=== PATIENT | female | born 1995 | race African-American/Black ===

== ENCOUNTER 2020-05-18 21:48 | Emergency (ER) | payer MEDICAID ==
[~2020-05-18] VITALS: Ht 167.6 cm; Wt 64.0 kg
[2020-05-18] MEDS ORDERED: ACETAMINOPHEN 325MG TABLET PO ONE (22:45)
[2020-05-18 23:47] VITALS: BP 119/82
== END 2020-05-18 23:52 | disposition home or self-care (01) ==
LOC: ER 21:55
DX: Z03.818 Encounter for observation for suspected exposure to other biological agents ruled out (principal); R50.9 Fever, unspecified
CPT/HCPCS: 87635; 99283; C9803; 99282

== ENCOUNTER 2022-06-05 21:36 | Emergency (ER) | payer MEDICAID, OTHER ==
[~2022-06-05] VITALS: Ht 167.6 cm; Wt 80.0 kg
[2022-06-05] MEDS ORDERED: KETOROLAC 60MG/2ML VIAL IM ONE (23:15)
[2022-06-06] MEDS ORDERED: IMIT25 PO (01:39)
[2022-06-06 02:00] VITALS: BP 133/78
== END 2022-06-06 02:00 | disposition home or self-care (01) ==
LOC: ER 21:36
DX: R51.9 Headache, unspecified (principal)
CPT/HCPCS: 70450; 81025; 96372; 99284; J1885

== ENCOUNTER 2022-08-19 20:01 | Emergency (ER) | payer MEDICAID, OTHER ==
[~2022-08-19] VITALS: Ht 167.6 cm; Wt 75.0 kg
[~2022-08-19 20:01] MED LIST: IMIT25 PO
[2022-08-19] MEDS ORDERED: DEXAMETHASONE 4MG TABLET PO ONE (21:30)
[2022-08-19 21:54] VITALS: BP 122/78
== END 2022-08-19 21:50 | disposition home or self-care (01) ==
LOC: ER 20:24
DX: J03.90 Acute tonsillitis, unspecified (principal)
CPT/HCPCS: 99283; J8540

== ENCOUNTER 2023-01-15 00:57 | Emergency (ER) | payer MEDICAID, OTHER ==
[~2023-01-15] VITALS: Ht 167.6 cm; Wt 75.3 kg
[2023-01-15 01:13] VITALS: BP 123/80
== END 2023-01-15 04:00 | disposition left against medical advice (07) ==
LOC: ER 00:57
DX: Z53.21 Procedure and treatment not carried out due to patient leaving prior to being seen by health care provider (principal)
CPT/HCPCS: 99281

== ENCOUNTER 2023-02-10 18:42 | Emergency (ER) | payer MEDICAID, OTHER ==
[~2023-02-10] VITALS: Ht 167.6 cm; Wt 75.0 kg
[2023-02-10] MEDS ORDERED: KETOROLAC 30MG/ML VIAL IM ONE (20:15)
[2023-02-10 20:48] VITALS: BP 132/89
[2023-02-10] MEDS ORDERED: ASPI1TAB8 PO (23:03)
== END 2023-02-10 23:16 | disposition home or self-care (01) ==
LOC: ER 18:42
DX: G43.909 Migraine, unspecified, not intractable, without status migrainosus (principal); H53.8 Other visual disturbances
CPT/HCPCS: 81025; 96372; 99283; J1885; Z7610

== ENCOUNTER 2023-04-28 22:17 | Emergency (ER) | payer MEDICAID ==
[~2023-04-28] VITALS: Ht 167.6 cm; Wt 77.1 kg
[~2023-04-28 22:17] MED LIST changes: +ASPI1TAB8 PO
[2023-04-28 22:42] VITALS: BP 121/79; O2SAT 100
[2023-04-29] MEDS ORDERED: NAPR-1164 MT (01:56)
[2023-04-29 02:19] VITALS: PULSE 71; RESP 16; TEMP 98.4
== END 2023-04-29 02:21 | disposition home or self-care (01) ==
LOC: ER 22:20
DX: M79.661 Pain in right lower leg (principal)
CPT/HCPCS: 73562; 99283; Z7610

== ENCOUNTER 2023-06-04 14:32 | Emergency (ER) | payer MEDICAID ==
[~2023-06-04] VITALS: Ht 172.7 cm; Wt 77.0 kg
[~2023-06-04 14:32] MED LIST changes: +NAPR-1164 MT
[2023-06-04 14:33] VITALS: PULSE 87
[2023-06-04 14:34] VITALS: BP 123/83; RESP 20; TEMP 98.3; O2SAT 97
[2023-06-04] MEDS ORDERED: ONDANSETRON 4MG ODT PO ONE (14:45)
[2023-06-04 15:06] LABS: BASOPHILS % 0.7 % (0.0-2.0); EOSINOPHILS % 3.2 % (0.0-5.0); HEMATOCRIT. 42.9 % (36.0-48.0); HEMOGLOBIN. 14.5 g/dL (12.0-16.0); LYMPHOCYTES % 28.8 % (20.0-50.0); MEAN CORPUSCULAR HEMOGLOBIN 31.4 pg (28.0-32.0); MEAN CORPUSCULAR HGB CONC 33.9 g/dL (31.0-37.0); MEAN CORPUSCULAR VOLUME 92.6 fL (81.0-99.0); MEAN PLATELET VOLUME 9.3 fl (7.4-10.4); MONOCYTES % 5.8 % (2.0-8.0); NEUTROPHILS % 61.5 % (40.0-76.0); PLATELET 355 x1000/uL (130-400); RED BLOOD CELL COUNT 4.63 mill/uL (4.2-5.4); RED CELL DISTRIBUTION WIDTH 14.8 % (11.6-14.6); WHITE BLOOD COUNT 8.8 x1000/uL (4.5-11.0)
[2023-06-04 15:16] LABS: CHLORIDE 109 mEq/L (98-107); INDEX HEMOLYSI 1 (1-3); INDEX ICTERIC 1 (1-4); INDEX LIPEMIC 1 (1-3); POTASSIUM 3.9 mEq/L (3.5-5.1); SODIUM 132 mEq/L (136-145)
[2023-06-04 15:23] LABS: ALANINE AMINOTRANSFERASE 12 IU/L (13-61); ALBUMIN 4.1 g/dL (3.4-5.0); ASPARTATE AMINOTRANSFERASE 10 IU/L (15-37); BILIRUBIN TOTAL 0.6 mg/dL (0.1-1.0); CALCIUM 8.9 mg/dL (8.5-10.1); CARBON DIOXIDE 27 mEq/L (21-32); CREATININE 0.9 mg/dL (0.6-1.3); GLUCOSE 97 mg/dL (70-105); PROTEIN TOTAL 9.1 g/dL (6.0-8.3); UREA NITROGEN BLOOD 8 mg/dL (7-21)
[2023-06-04] MEDS ORDERED: ONDA4TAB50 MT (16:13)
[2023-06-04] MEDS ORDERED: BISM262T15 MT (16:13)
[2023-06-04] MEDS ORDERED: METOCLOPRAMIDE HCL 5MG TABLET PO ONE (16:45)
== END 2023-06-04 16:45 | disposition home or self-care (01) ==
LOC: ER 14:32
DX: R11.2 Nausea with vomiting, unspecified (principal)
CPT/HCPCS: 99283; 80053; 81025; 83690; 85025; 36415; Q0162; J8597

== ENCOUNTER 2023-06-25 16:01 | Emergency (ER) | payer MEDICAID, OTHER ==
[~2023-06-25] VITALS: Ht 167.6 cm; Wt 75.0 kg
[~2023-06-25 16:01] MED LIST changes: +BISM262T15 MT; +ONDA4TAB50 MT
[2023-06-25 16:25] VITALS: BP 126/76; PULSE 79; RESP 18; TEMP 98.5; O2SAT 99
== END 2023-06-25 17:53 | disposition home or self-care (01) ==
LOC: ER 16:01
DX: S00.33XA Contusion of nose, initial encounter (principal); W22.8XXA Striking against or struck by other objects, initial encounter; Y93.89 Activity, other specified; Y92.89 Other specified places as the place of occurrence of the external cause; Y99.8 Other external cause status
CPT/HCPCS: 81025; 99282

== ENCOUNTER 2024-01-28 12:23 | Emergency (ER) | payer MEDICAID ==
[~2024-01-28] VITALS: Ht 167.6 cm; Wt 80.0 kg
[2024-01-28 12:40] VITALS: TEMP 100.6; O2SAT 99
[2024-01-28] MEDS ORDERED: PENICILLIN G BENZATHINE 1,200,000 UNITS/2ML SYR IM ONE (13:30)
[2024-01-28] MEDS ORDERED: NAPR-681 MT (14:28)
[2024-01-28] MEDS ORDERED: AMOX500T2 MT (14:28)
[2024-01-28] MEDS: DEXAMETHASONE 10 MG/ML VIAL IM ONE (14:44)
[2024-01-28] MEDS: LIDOCAINE HCL/PF 1% 10 MG/ML 5ML VIAL INFIL ONE (14:44)
[2024-01-28] MEDS: KETOROLAC 60MG/2ML VIAL IM STA (14:44)
[2024-01-28] MEDS: CEFTRIAXONE SODIUM 1G VIAL IM ONE (14:44)
[2024-01-28 14:59] VITALS: BP 126/76; PULSE 109; RESP 16
== END 2024-01-28 15:01 | disposition home or self-care (01) ==
LOC: ER 12:23
DX: J03.90 Acute tonsillitis, unspecified (principal)
CPT/HCPCS: 81025; 96372; 99284; J0696; J1100; J1885; J3490; J0561; Z7610 ×2

== ENCOUNTER 2024-07-20 17:19 | Emergency (ER) | payer MEDICAID ==
[~2024-07-20] VITALS: Ht 167.6 cm; Wt 79.4 kg
[~2024-07-20 17:19] MED LIST changes: +AMOX500T2 MT; +NAPR-681 MT
[2024-07-20 17:23] VITALS: BP 132/79; PULSE 97; RESP 16; TEMP 98.2; O2SAT 100
[2024-07-20] MEDS: ACETAMINOPHEN 500MG TABLET PO ONE (18:01)
== END 2024-07-20 19:18 | disposition home or self-care (01) ==
LOC: ER 17:19
DX: S60.032A Contusion of left middle finger without damage to nail, initial encounter (principal); Z79.899 Other long term (current) drug therapy; X58.XXXA Exposure to other specified factors, initial encounter; Y93.89 Activity, other specified; Y92.89 Other specified places as the place of occurrence of the external cause; Y99.8 Other external cause status
CPT/HCPCS: 73140; 81025; 99283

== ENCOUNTER 2024-08-17 21:03 | Emergency (ER) | payer MEDICAID ==
[~2024-08-17] VITALS: Ht 165.1 cm; Wt 78.4 kg
[2024-08-17 21:13] VITALS: BP 123/85; PULSE 84; TEMP 98.2; O2SAT 100
[2024-08-18 00:10] VITALS: RESP 16
== END 2024-08-18 01:19 | disposition home or self-care (01) ==
LOC: ER 21:03
DX: R59.1 Generalized enlarged lymph nodes (principal); Z79.899 Other long term (current) drug therapy
CPT/HCPCS: 99282